=== PATIENT | male | born 1980 | race Caucasian/White ===

== ENCOUNTER 2020-12-09 12:37 | Emergency (ER) | payer OTHER, SELFPAY ==
--- NOTE | 2020-12-09 13:30 | XR_ITS ---
WS: [id number] Exam: XR chest 1V portable [id number] Date/Time of Exam: 12/09/2020 1:30 PM Reason For Exam: lightheadness Exam: XR chest 1V portable [id number] Date/Time of Exam: 12/09/2020 1:30 PM Reason For Exam: lightheadness No priors. Findings: The lungs are clear and fully expanded. Costophrenic angles are sharp. No infiltrates. Bronchovascula r relief appears normal. Cardiac silhouette is unremarkable. Bony elements are intact. XR/XR chest 1V portable [id number] IMPRESSION: Unremarkable chest radiograph.
--- NOTE | 2020-12-09 13:30 | CT_ITS ---
WS: [id number] CT HEAD TECHNIQUE: Noncontrast CT of the head obtained from the skullbase to the vertex. CLINICAL INFORMATION: light headed and blacking out COMPARISON: None. DLP: 964.[address] scans at [facility] use at least one of these dose optimization techniques: automat ed exposure control; mA and/or kV adjustment per patient size (includes targeted exams where dose is matched to clinical indication); or iterative reconstruction. FINDINGS: No evidence of intracranial hemorrhage or mass effect. Cavum septum pellucidum. 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 Fourth ventricle remains patent. Cerebellar tonsils approximate ly 6 mm below the foramen magnum. This can be followed up with MRI on an Elective basis. No intracran ial hydrocephalus. Small 3 mm lobulation near the genu of the corpus callosum may represent prominent vessel or vein. No extra-axial fluid collections. Paranasal sinuses and mastoid air cells are well aerated. CT/CT head wo con* [id number] IMPRESSION: 1. No evidence of intracranial hemorrhage or mass effect. 2. Chiari I malformation with crowding of the foramen magnum. Normal fourth ve ntricle. No hydrocephalus. Recommend follow-up with MRI head and cervical spine . 3. Small 3 mm lobulation near the genu of the corpus callosum likely incidenta l prominent vessel or vein. This can be followed up with MRA head or CTA. 4. Normal barraza-white differentiation. 5. No other significant findings.
[2020-12-09 13:40] VITALS: BP 153/97; PULSE 72; RESP 18; TEMP 36.8; O2SAT 98; BMI 16.9
[2020-12-09 15:03] LABS: Basophils # 0.1 10^3/uL (0.0-0.1); Basophils % 0.6 %; Eosinophils # 0.1 10^3/uL (0.0-0.8); Eosinophils % 0.9 %; Hematocrit 46.9 % (42.0-52.0); Hemoglobin 15.8 g/dL (11.7-16.6); Mean Corpuscular HGB Conc 33.7 g/dL (30.0-36.0); Mean Corpuscular Hemoglobin 30.4 pg (28.0-34.0); Mean Corpuscular Volume 90.2 fL (80-94); Mean Platelet Volume 9.2 fL (7.4-10.4); Monocytes # 0.5 10^3/uL (0.2-0.9); Monocytes % 5.7 %; Neutrophils # 5.63 10^3/uL (1.8-7.7); Neutrophils % 60.6 %; Nucleated Red Blood Cells % 0 %; Platelet Count 273 10^3/cmm (130-400); Red Cell Distribution Width 13.8 % (12.1-15.1); White Blood Count 9.3 10^3/uL (4.0-10.0)
[2020-12-09 15:59] LABS: Alanine Aminotransferase 11 U/L (0-41); Albumin Level 4.8 g/dL (3.5-5.2); Alkaline Phosphatase 65 IU/L (40-130); Aspartate Amino Transferase 16 U/L (0-40); Blood Urea Nitrogen 10 mg/dL (6-20); Calcium 9.5 mg/dL (8.5-10.5); Carbon Dioxide 31 mmol/L (22-29); Chloride 103 mmol/L (98-107); Creatinine Clr Calc Pharmacy 133.8726; Globulin 2.2 g/dL (1.3-4.6); Glomerular Filtration Rate 150.8 mL/min (90-130); Glucose 108 mg/dL (65-115); Osmolality Calculated 294 mOsm/kg (285-295); Sodium 142 mmol/L (136-145); Total Bilirubin 0.3 mg/dL (0.15-1.2)
[2020-12-09 16:32] LABS: Troponin(5th) Baseline 6 ng/L (0-15)
[2020-12-09 18:05] LABS: Troponin 5 2HR Delta 0 ABS# (0-10)
--- NOTE | 2020-12-09 18:39 | W.ED.DIZZY ---
HPI - Dizziness General: Chief Complaint: Dizziness Stated Complaint: blacking out, lightheaded, Time Seen by Provider: 12/09/20 18:32 History of Present Illness: HPI Narrative: Patient comes in today with complaints of feeling like he was going to pass out this morning when getting ready for work. Patient became extremely lightheaded and [facility] for further evaluation. Patient reports for last 5 years he has had previous episodes of similar problems. MD elicited complaint: lightheadedness Onset (ago): year(s) Severity: mild Description: near-syncope History of similar symptoms: Yes Exacerbating factors: movement/ambulation Relieving factors: rest Associated symptoms: Reports nausea Associated neuro symptoms: Reports extremity weakness Review of Systems General: Reports: 10 or more systems reviewed and unremarkable except in HPI and below GI: Reports: nausea Neuro: Reports: other (Lightheadedness) Physical Exam Const: COMMON NORMALS: no acute distress and patient oriented x3 GENERAL APPEARANCE: cooperative HENMT: COMMON NORMALS: normocephalic and Normal external nose present HEAD & SCALP: normal to inspection and normocephalic NOSE: Normal external nose present MOUTH: Normal oral and palatal mucosa present Eye: GENERAL EYE: appearance normal, both eyes and all related structures Neck/C-Spine: COMMON NORMALS: full ROM Chest: COMMONS NORMALS: normal inspection of the chest Resp: COMMON NORMALS: normal respiratory effort EFFORT & INSPECTION: Yes able to speak in complete sentences Cardio: COMMON NORMALS: regular rate and regular rhythm RATE: regular rate RHYTHM: regular rhythm GI: COMMON NORMALS: non-tender Back/Pelvis: COMMON NORMALS: thoracic and lumbar spine normal to inspection Extremity: COMMON NORMALS: normal to inspection Neuro: COMMON NORMALS: patient oriented x3 and moves all extremities Psych: COMMON NORMALS: mental status grossly normal and cooperative Skin: COMMON NORMALS: no rashes or lesions noted GENERAL SKIN EXAM: no rashes or lesions noted Course Vital Signs: Vital signs: Vital Signs Temperature 98.3 F 12/09/20 13:40 Pulse Rate 72 12/09/20 13:40 Respiratory Rate 18 12/09/20 13:40 Blood Pressure 153/97 12/09/20 13:40 Pulse Oximetry 98 12/09/20 13:40 MDM - Dizziness MDM Narrative: Medical decision making narrative: Patient comes in today with complaints of lightheadedness. Patient has been having spells like this for the last 5 years. On exam patient is alert oriented. Vital signs are normal. Orthostatic blood pressures sitting and standing were unremarkable. Differential diagnosis includes not limited to ACS, orthostatic hypotension, BPV, strokelike syndrome. Laboratory values were unremarkable. Troponin was normal. EKG was normal. CT of the head noted some Chiari malformation along with some other abnormalities that look to be chronic. I felt the patient probably needs to had further evaluation regarding his abnormalities to his CT of the head recommended that neurology be consulted at a later date with a possible MRI. I reviewed this with patient who agreed to plan. Patient should follow-up with primary care as needed. Case management was consulted for follow-up appointment with neurology. Lab Data: Labs: Lab Results 12/09/20 12/09/20 12/09/20 Range/Units 14:56 14:56 14:56 WBC 9.3 (4.0-10.0) 10^3/ uL RBC 5.20 (4.1-5.3) 10^6/u L Hgb 15.8 (11.7-16.6) g/dL Hct 46.9 (42.0-52.0) % MCV 90.2 (80-94) fL MCH 30.4 (28.0-34.0) pg MCHC 33.7 (30.0-36.0) g/dL RDW 13.8 (12.1-15.1) % Plt Count 273 (130-400) 10^3/c mm MPV 9.2 (7.4-10.4) fL Neut % (Auto) 60.6 % Lymph % (Auto) 32.0 % Wilkinson % (Auto) 5.7 % Eos % (Auto) 0.9 % Baso % (Auto) 0.6 % Neut # (Auto) 5.63 (1.8-7.7) 10^3/u L Lymph # (Auto) 3.0 (0.8-4.8) 10^3/u L Wilkinson # (Auto) 0.5 (0.2-0.9) 10^3/u L Eos # (Auto) 0.1 (0.0-0.8) 10^3/u L Baso # (Auto) 0.1 (0.0-0.1) 10^3/u L Nucleated RBC % (a uto) 0 % Nucleated RBCs # 0.0 /100WBC Sodium 142 (136-145) mmol/L Potassium 5.0 (3.5-5.1) mmol/L Chloride 103 (98-107) mmol/L Carbon Dioxide 31 H (22-29) mmol/L Anion Gap 13.0 (5-19) BUN 10 (6-20) mg/dL Creatinine 0.6 L (0.7-1.2) mg/dL GFR Calculation 150.8 H (90-130) mL/min Glucose 108 (65-115) mg/dL Calculated Osmolal ity 294 (285-295) mOsm/k g Calcium 9.5 (8.5-10.5) mg/dL Total Bilirubin 0.3 (0.15-1.2) mg/dL AST 16 (0-40) U/L ALT 11 (0-41) U/L Alkaline Phosphata se 65 (40-130) IU/L Troponin T Baselin e 6 (0-15) ng/L Troponin T 120 Min thomas (0-15) ng/L Delta Troponin T (0-10) ABS# Total Protein 7.0 (6.6-8.7) g/dL Albumin 4.8 (3.5-5.2) g/dL Globulin 2.2 (1.3-4.6) g/dL 12/09/20 Range/Units 17:35 WBC (4.0-10.0) 10^3/ uL RBC (4.1-5.3) 10^6/u L Hgb (11.7-16.6) g/dL Hct (42.0-52.0) % MCV (80-94) fL MCH (28.0-34.0) pg MCHC (30.0-36.0) g/dL RDW (12.1-15.1) % Plt Count (130-400) 10^3/c mm MPV (7.4-10.4) fL Neut % (Auto) % Lymph % (Auto) % Wilkinson % (Auto) % Eos % (Auto) % Baso % (Auto) % Neut # (Auto) (1.8-7.7) 10^3/u L Lymph # (Auto) (0.8-4.8) 10^3/u L Wilkinson # (Auto) (0.2-0.9) 10^3/u L Eos # (Auto) (0.0-0.8) 10^3/u L Baso # (Auto) (0.0-0.1) 10^3/u L Nucleated RBC % (a uto) % Nucleated RBCs # /100WBC Sodium (136-145) mmol/L Potassium (3.5-5.1) mmol/L Chloride (98-107) mmol/L Carbon Dioxide (22-29) mmol/L Anion Gap (5-19) BUN (6-20) mg/dL Creatinine (0.7-1.2) mg/dL GFR Calculation (90-130) mL/min Glucose (65-115) mg/dL Calculated Osmolal ity (285-295) mOsm/k g Calcium (8.5-10.5) mg/dL Total Bilirubin (0.15-1.2) mg/dL AST (0-40) U/L ALT (0-41) U/L Alkaline Phosphata se (40-130) IU/L Troponin T Baselin e (0-15) ng/L Troponin T 120 Min thomas 6.00 (0-15) ng/L Delta Troponin T 0 (0-10) ABS# Total Protein (6.6-8.7) g/dL Albumin (3.5-5.2) g/dL Globulin (1.3-4.6) g/dL EKG Data^: EKG 1: Attestation: I personally reviewed and interpreted this EKG as follows: (EKG shows a sinus bradycardia with a rate of 58 bpm, regular, no ST elevation, no ectopy, no prior exam available for comparison.) Discharge Plan Discharge Patient Disposition: Home Clinical Impression: Postural dizziness with near syncope Condition: Stable Discharge Orders: Discharge ED (Routine); Ordered 12/09/20 Ordered By: Iam Logan Discharge Diet: Usual diet Discharge Activity: Increase activity as tolerated Patient Instructions: Lightheadedness (ED), Opioid Safety Activity Restrictions/Additional Instructions: Drink plenty of fluids. Healthy diet and exercise. Follow-up with neurology regarding abnormalities on the CT scan. Avoid the use of alcohol and cigarette smoking. Follow-up with primary care as needed. Return to the ER for new concerns or worsening symptoms. Coding Level of Care Code ED Craft Recruiter for Chg Fwd Exam Comprehensive
[2020-12-09 19:00] VITALS: BP 126/75; BP 139/89; PULSE 62; PULSE 85
--- NOTE | 2020-12-09 19:30 | ECG_ITS ---
[facility] Test Date: 2020-12-09 Pat Name: Minesh Pederson Department: Room: Gender: Male Mental Health Worker: : 1980 Requested By: Warren Ascencio Order Number: [id number] Watts MD: Jessie Rodas M.D. Measurements Intervals [place] Rate: 58 P: 80 CT: 168 QRS: 101 QRSD: 109 T: 79 QT: 395 QTc: 389 Interpretive Statements SINUS BRADYCARDIA MARKED RIGHT AXIS DEVIATION [QRS AXIS > 100] INCOMPLETE RIGHT BUNDLE BRANCH BLOCK [90+ ms QRS DURATION, TERMINAL R IN V1/V2, 40+ ms S IN I/aVL/V4/V5/V6] MODERATE ST DEPRESSION [0.05+ mV ST DEPRESSION] No previous ECG available for comparison Electronically Signed On 12-09-2020 22:54:14 CDT by Jessie Rodas M.D. [email or web address]
--- NOTE | 2020-12-10 09:22 | DCPLANNER ---
Addendum entered by Regina Lock 01/06/21 08:13: Dr. Washington office is still waiting on [facility] authorization, clinic has called [facility] to check on the authorization. Addendum entered by Regina Lock 12/10/20 09:25: Patient has VA insurance, hospice case manager will email patients information to Giovanna with [facility], for the authorization process can be started. Original Note: business planning manager had message to schedule a follow up appointment for patient with neurology for abnormal CT and lightheadedness. business planning manager emailed patients information to Pilar at Dr. Washington office. Patients information will be printed and reviewed. Clinic will call patient with appointment information.
== END 2020-12-09 19:03 | disposition home or self-care (01) ==
PROVIDERS: Physician Assistant; Emergency Provider Nurse Practitioner Family
DX: R42 Dizziness and giddiness (principal); R55 Syncope and collapse
CPT/HCPCS: 36415; 70450; 71045; 80053; 84484; 85025; 93005; 99283